=== PATIENT | female | born 1990 | race Caucasian/White ===

== ENCOUNTER 2017-08-20 13:53 | Outpatient (CLI) | payer MEDICAID ==
[2017-08-20 15:33] LABS: ADD MAN DIFF? NO
[2017-08-20 15:36] LABS: WHITE BLOOD COUNT 5.5 10^3/ul (4.8-10.8)
[2017-08-20 15:36] LABS: BASOPHILS % 0.2 % (0.0-2.0); EOSINOPHILS # 0.1 10^3/ul (0.0-0.5); EOSINOPHILS % 1.1 % (0.0-7.0); HEMATOCRIT 34.5 % (37.0-47.0); HEMOGLOBIN 11.7 g/dl (12.0-16.0); LYMPHOCYTES # 1.4 10^3/ul (0.8-2.9); LYMPHOCYTES % 25.6 % (15.0-51.0); MEAN CORPUSCULAR HEMOGLOBIN 27.1 pg (29.0-33.0); MEAN CORPUSCULAR HGB CONC 33.9 g/dl (32.0-37.0); MEAN CORPUSCULAR VOLUME 79.9 fl (82.0-101.0); MEAN PLATELET VOLUME 11.7 fl (7.4-10.4); MONOCYTE # 0.5 10^3/ul (0.3-0.9); MONOCYTES % 8.5 % (0.0-11.0); NEUTROPHIL # 3.5 10^3/ul (1.6-7.5); NEUTROPHILS % 64.1 % (39.0-77.0); PLATELET COUNT 238 10^3/UL (140-415); RED BLOOD COUNT 4.32 10^6/ul (4.20-5.40); RED CELL DISTRIBUTION WIDTH 14.2 % (11.5-14.5)
[2017-08-20 16:03] LABS: ALANINE AMINOTRANSFERASE 26 IU/L (13-69); ALBUMIN 3.3 g/dl (3.3-4.9); ALBUMIN/GLOBULIN RATIO 0.97; ALKALINE PHOSPHATASE 237 IU/L (42-121); ANION GAP 11 (8-16); ASPARTATE AMINO TRANSFERASE 25 IU/L (15-46); BILIRUBIN,INDIRECT 0.2 mg/dl (0-1.1); BILIRUBIN,TOTAL 0.2 mg/dl (0.2-1.3); BLOOD UREA NITROGEN 4 mg/dl (7-20); CARBON DIOXIDE 22 mmol/L (21-31); CHLORIDE 109 mmol/L (97-110); CREATININE 0.38 mg/dl (0.44-1.00); GLUCOSE 93 mg/dl (70-220); POTASSIUM 3.9 mmol/L (3.5-5.1); SODIUM 138 mmol/L (135-144); TOTAL PROTEIN 6.7 g/dl (6.1-8.1)
[2017-08-24 12:31] LABS: CHENODEOXYCHOLIC ACID 1.5 umol/L (< OR = 3.1); CHOLIC ACID 1.9 umol/L (< OR = 1.8); DEOXYCHOLIC ACID <0.5 umol/L (< OR = 2.4); TOTAL BILE ACIDS 3.4 umol/L (< OR = 6.8)
== END 2017-08-20 18:25 | disposition home or self-care (01) ==
LOC: OBT 13:53 → L-D 13:54 → OBT 18:25
DX: O26.893 Other specified pregnancy related conditions, third trimester (principal); L29.9 Pruritus, unspecified; O62.9 Abnormality of forces of labor, unspecified; Z3A.37 37 weeks gestation of pregnancy
CPT/HCPCS: 80053; 83789; 85025

== ENCOUNTER 2017-08-20 19:56 | Outpatient (CLI) | payer MEDICAID ==
[2017-08-24] MEDS ORDERED: FENTAnyl 2MCG/ML-ROPIV 0.2% 100 ML (09:45)
== END 2017-08-20 20:50 | disposition home or self-care (01) ==
LOC: OBT 19:56 → L-D 19:57 → OBT 20:50
DX: O26.893 Other specified pregnancy related conditions, third trimester (principal); Z3A.38 38 weeks gestation of pregnancy; L29.9 Pruritus, unspecified
CPT/HCPCS: 76818

== ENCOUNTER 2017-08-23 12:44 | Inpatient (IN) | payer MEDICAID ==
[2017-08-23 14:41] LABS: ADD MAN DIFF? NO
[2017-08-23 14:44] LABS: WHITE BLOOD COUNT 6.1 10^3/ul (4.8-10.8)
[2017-08-23 14:44] LABS: BASOPHILS % 0.2 % (0.0-2.0); EOSINOPHILS # 0.1 10^3/ul (0.0-0.5); EOSINOPHILS % 0.8 % (0.0-7.0); HEMATOCRIT 34.1 % (37.0-47.0); HEMOGLOBIN 11.6 g/dl (12.0-16.0); LYMPHOCYTES # 1.6 10^3/ul (0.8-2.9); LYMPHOCYTES % 26.5 % (15.0-51.0); MEAN CORPUSCULAR HEMOGLOBIN 27.6 pg (29.0-33.0); MEAN PLATELET VOLUME 11.8 fl (7.4-10.4); MONOCYTE # 0.3 10^3/ul (0.3-0.9); MONOCYTES % 5.6 % (0.0-11.0); NEUTROPHIL # 4.1 10^3/ul (1.6-7.5); NEUTROPHILS % 66.6 % (39.0-77.0); PLATELET COUNT 228 10^3/UL (140-415); RED BLOOD COUNT 4.21 10^6/ul (4.20-5.40); RED CELL DISTRIBUTION WIDTH 14.1 % (11.5-14.5)
[2017-08-23 14:47] LABS: ADD UMIC YES; UR ASCORBIC ACID NEGATIVE (NEGATIVE); UR BILIRUBIN (Dip) NEGATIVE (NEGATIVE); UR BLOOD (Dip) NEGATIVE (NEGATIVE); UR CLARITY CLEAR (CLEAR); UR COLOR YELLOW (YELLOW); UR GLUCOSE (Dip) NEGATIVE (NEGATIVE); UR KETONES (Dip) 1+ mg/dL (NEGATIVE); UR LEUKOCYTE ESTERASE (Dip) 1+ Leu/ul (NEGATIVE); UR MUCUS FEW /HPF (NONE SEEN); UR NITRITE (Dip) NEGATIVE (NEGATIVE); UR RBC 1 /HPF (0-5); UR SPECIFIC GRAVITY (Dip) 1.011 (1.003-1.030); UR SQUAMOUS EPITHELIAL CELL FEW /HPF (FEW); UR TOTAL PROTEIN (Dip) NEGATIVE (NEGATIVE); UR UROBILINOGEN (Dip) NEGATIVE (NEGATIVE); UR WBC 4 /HPF (0-5)
[2017-08-23] MEDS: LACTATED RINGER'S 1,000 ML IV ×3 (14:47→21:43)
[2017-08-23 15:04] LABS: INR 0.93; PROTIME 12.6 Sec (11.9-14.9)
[2017-08-23 15:05] LABS: PARTIAL THROMBOPLASTIN TIME 26.9 Sec (25.0-35.0)
[2017-08-23 15:11] LABS: ALANINE AMINOTRANSFERASE 27 IU/L (13-69); ALBUMIN 3.4 g/dl (3.3-4.9); ALKALINE PHOSPHATASE 252 IU/L (42-121); ANION GAP 12 (8-16); ASPARTATE AMINO TRANSFERASE 34 IU/L (15-46); BILIRUBIN,INDIRECT 0.3 mg/dl (0-1.1); BILIRUBIN,TOTAL 0.3 mg/dl (0.2-1.3); BLOOD UREA NITROGEN 4 mg/dl (7-20); CALCIUM 8.9 mg/dl (8.4-10.2); CARBON DIOXIDE 22 mmol/L (21-31); CHLORIDE 107 mmol/L (97-110); CREATININE 0.41 mg/dl (0.44-1.00); GLUCOSE 70 mg/dl (70-220); POTASSIUM 3.6 mmol/L (3.5-5.1); SODIUM 137 mmol/L (135-144); TOTAL PROTEIN 6.8 g/dl (6.1-8.1); URIC ACID 4.4 mg/dl (3.1-7.9)
[2017-08-23] MEDS ORDERED: LIDOCAINE 1% (MPF) 30 ML INJ INJ (18:30)
[2017-08-23] MEDS ORDERED: OXYTOCIN 30 UNITS/LR 500 ML IV (18:30)
[2017-08-23 19:09] LABS: HEPATITIS B SURFACE ANTIGEN NEGATIVE (NEGATIVE)
[2017-08-23] MEDS: URSODIOL 300 MG CAP PO (21:19)
[2017-08-23 21:45] LABS: RAPID PLASMA REAGIN NONREACTIVE (NR)
[2017-08-23] MEDS: BUTORPHANOL 2 MG INJ IV (21:58)
[2017-08-24] MEDS ORDERED: ONDANSETRON 4 MG INJ (04:06)
[2017-08-24] MEDS: ONDANSETRON 4 MG INJ IV (04:14)
[2017-08-24] MEDS: LACTATED RINGER'S 1,000 ML IV ×2 (05:17→09:50)
[2017-08-24] MEDS: PRENATAL VITAMIN PO (09:00)
[2017-08-24] MEDS: URSODIOL 300 MG CAP PO ×3 (09:48→21:51)
[2017-08-24] MEDS ORDERED: NALOXONE (0.4 MG/ML) INJ IV (10:30)
[2017-08-24] MEDS ORDERED: FENTAnyl 2MCG/ML-ROPIV 0.2% 100 ML BAG EPI (10:30)
[2017-08-24] MEDS: OXYTOCIN 30 UNITS/LR 500 ML IV ×2 (10:33→13:06)
[2017-08-24] MEDS ORDERED: LACTATED RINGER'S 1,000 ML IV* (13:09)
[2017-08-24] MEDS ORDERED: ONDANSETRON 4 MG TAB PO (13:30)
[2017-08-24] MEDS ORDERED: DIPHENHYDRAMINE 50 MG INJ IV (13:30)
[2017-08-24] MEDS ORDERED: MISOPROSTOL 200 MCG TAB PR (13:30)
[2017-08-24] MEDS ORDERED: BENZOCAINE 20% 56 ML SPRAY TOP (13:30)
[2017-08-24] MEDS ORDERED: MAGNESIUM HYDROXIDE 30ML CUP PO (13:30)
[2017-08-24] MEDS ORDERED: NA PHOSPHATE/BIPHOS 133 ML ENEMA PR (13:30)
[2017-08-24] MEDS ORDERED: SENNA/DOCUSATE NA (8.6MG/50MG) TAB PO (13:30)
[2017-08-24] MEDS ORDERED: ONDANSETRON 4 MG INJ IV (13:30)
[2017-08-24] MEDS ORDERED: LANOLIN 7 GM TUBE TOP (13:30)
[2017-08-24] MEDS ORDERED: CARBOPROST 250 MCG INJ IM (13:30)
[2017-08-24] MEDS ORDERED: DIBUCAINE 1% 30 GM OINT TOP (13:30)
[2017-08-24] MEDS ORDERED: DIPHENHYDRAMINE 25 MG CAP PO (13:30)
[2017-08-24] MEDS ORDERED: WITCH HAZEL/GLYCERIN PAD PR (13:30)
[2017-08-24] MEDS: HYDROCODONE/APAP (5/325) TAB PO (15:49)
[2017-08-24] MEDS: IBUPROFEN 600 MG TAB PO (18:15)
[2017-08-24] MEDS: AMOXICILLIN 500 MG CAP PO (21:51)
[2017-08-24] MEDS: SENNA/DOCUSATE NA (8.6MG/50MG) TAB PO (21:51)
[2017-08-25] MEDS: IBUPROFEN 600 MG TAB PO ×5 (00:06→23:49)
[2017-08-25] MEDS: HYDROCODONE/APAP (5/325) TAB PO ×2 (02:44→19:55)
[2017-08-25] MEDS: AMOXICILLIN 500 MG CAP PO ×3 (06:24→22:12)
[2017-08-25] MEDS ORDERED: CEFAZOLIN 1 GM INJ (07:00)
[2017-08-25] MEDS: DEXTROSE 5%-LR 1,000 ML IV (08:54)
[2017-08-25] MEDS: PRENATAL VITAMIN PO (09:00)
[2017-08-25] MEDS: SENNA/DOCUSATE NA (8.6MG/50MG) TAB PO ×2 (09:00→21:01)
[2017-08-25] MEDS: URSODIOL 300 MG CAP PO ×3 (09:00→21:01)
[2017-08-25 09:11] LABS: ADD MAN DIFF? NO
[2017-08-25 09:12] LABS: BASOPHILS % 0.3 % (0.0-2.0); EOSINOPHILS # 0.1 10^3/ul (0.0-0.5); EOSINOPHILS % 1.2 % (0.0-7.0); HEMATOCRIT 35.4 % (37.0-47.0); HEMOGLOBIN 11.4 g/dl (12.0-16.0); LYMPHOCYTES # 2.4 10^3/ul (0.8-2.9); LYMPHOCYTES % 31.1 % (15.0-51.0); MEAN CORPUSCULAR HEMOGLOBIN 26.8 pg (29.0-33.0); MEAN CORPUSCULAR HGB CONC 32.2 g/dl (32.0-37.0); MEAN CORPUSCULAR VOLUME 83.1 fl (82.0-101.0); MEAN PLATELET VOLUME 11.9 fl (7.4-10.4); MONOCYTE # 0.5 10^3/ul (0.3-0.9); MONOCYTES % 6.5 % (0.0-11.0); NEUTROPHIL # 4.7 10^3/ul (1.6-7.5); NEUTROPHILS % 60.5 % (39.0-77.0); PLATELET COUNT 246 10^3/UL (140-415); RED BLOOD COUNT 4.26 10^6/ul (4.20-5.40)
[2017-08-25 09:12] LABS: WHITE BLOOD COUNT 7.8 10^3/ul (4.8-10.8)
[2017-08-25] MEDS ORDERED: BUPIVACAINE 0.75%/DEXT (SPINAL) 2 ML INJ (13:47)
[2017-08-25] MEDS ORDERED: NEOSTIGMINE 3 MG/3 ML SYRINGE (13:51)
[2017-08-25] MEDS ORDERED: FENTAnyl 50 MCG/ML VIAL (13:51)
[2017-08-25] MEDS ORDERED: MIDAZOLAM 1 MG/ML 2 ML INJ (13:51)
[2017-08-25] MEDS ORDERED: ROCURONIUM 50 MG INJ (13:51)
[2017-08-25] MEDS ORDERED: GLYCOPYRROLATE 0.4 MG INJ (13:51)
[2017-08-25] MEDS ORDERED: PROPOFOL 20 ML (13:51)
[2017-08-25] MEDS ORDERED: DEXAMETHASONE 4 MG/ML 1 ML INJ (13:52)
[2017-08-25] MEDS ORDERED: ONDANSETRON 4 MG INJ (13:52)
[2017-08-25] MEDS ORDERED: KETOROLAC 30 MG INJ (15:20)
[2017-08-25] MEDS: KETOROLAC 30 MG INJ IV (15:26)
[2017-08-25] MEDS: HYDROmorphONE (0.2 MG/ML) 10ML SYG IV ×5 (15:26→16:22)
[2017-08-25] MEDS ORDERED: FENTAnyl 50 MCG/ML VIAL IV ×3 (15:30)
[2017-08-25] MEDS ORDERED: ALBUTEROL 0.083% (NEB) 2.5 MG/3 ML AMP HHN (15:30)
[2017-08-25] MEDS ORDERED: HYDROmorphONE (0.2 MG/ML) 10ML SYG IV (15:30)
[2017-08-25] MEDS: OXYTOCIN 30 UNITS/LR 500 ML IV (18:25)
[2017-08-26] MEDS: IBUPROFEN 600 MG TAB PO ×2 (05:45→11:49)
[2017-08-26] MEDS: AMOXICILLIN 500 MG CAP PO (05:45)
[2017-08-26 09:36] LABS: ADD MAN DIFF? NO
[2017-08-26 09:40] LABS: BASOPHILS % 0.2 % (0.0-2.0); EOSINOPHILS # 0.1 10^3/ul (0.0-0.5); EOSINOPHILS % 0.9 % (0.0-7.0); HEMATOCRIT 34.4 % (37.0-47.0); HEMOGLOBIN 11.3 g/dl (12.0-16.0); LYMPHOCYTES # 2.7 10^3/ul (0.8-2.9); LYMPHOCYTES % 29.5 % (15.0-51.0); MEAN CORPUSCULAR HGB CONC 32.8 g/dl (32.0-37.0); MEAN CORPUSCULAR VOLUME 82.1 fl (82.0-101.0); MEAN PLATELET VOLUME 11.6 fl (7.4-10.4); MONOCYTE # 0.4 10^3/ul (0.3-0.9); MONOCYTES % 4.5 % (0.0-11.0); NEUTROPHIL # 5.8 10^3/ul (1.6-7.5); NEUTROPHILS % 64.5 % (39.0-77.0); PLATELET COUNT 274 10^3/UL (140-415); RED BLOOD COUNT 4.19 10^6/ul (4.20-5.40); RED CELL DISTRIBUTION WIDTH 14.5 % (11.5-14.5)
[2017-08-26 09:40] LABS: WHITE BLOOD COUNT 9.1 10^3/ul (4.8-10.8)
[2017-08-26] MEDS: URSODIOL 300 MG CAP PO (09:41)
[2017-08-26] MEDS: SENNA/DOCUSATE NA (8.6MG/50MG) TAB PO (09:41)
[2017-08-26] MEDS: PRENATAL VITAMIN PO (09:42)
[2017-08-26] MEDS: MEASLES,MUMPS,RUBELLA VACCINE INJ SC* (09:43)
[2017-08-26] MEDS: VARICELLA VACCINE LIVE/PF 1,350 UNIT/0.5 ML ML SC* (09:43)
[2017-08-26] MEDS: DIPHTH/TET/ACEL PERTUSS (ADULT) 0.5 ML VIAL IM* (11:50)
== END 2017-08-26 14:10 | disposition home or self-care (01) | DRG 767 ==
LOC: OBT 12:44 → L-D 12:45 → OBT 14:10 → PP1 08-24 13:30 → L-D 14:10 → PP1 15:39 → L-D 17:58
PROC: 0UT70ZZ Resection of Bilateral Fallopian Tubes, Open Approach (ICD-10-PCS; 2017-08-25 14:00)
PROC: 10E0XZZ Delivery of Products of Conception, External Approach (ICD-10-PCS; principal; 2017-08-25 14:06)
PROC: 0HQ9XZZ Repair Perineum Skin, External Approach (ICD-10-PCS; 2017-08-25 14:06)
DX: O69.81X0 Labor and delivery complicated by cord around neck, without compression, not applicable or unspecified (principal); O70.0 First degree perineal laceration during delivery; Z30.2 Encounter for sterilization; Z3A.37 37 weeks gestation of pregnancy; Z37.0 Single live birth
CPT/HCPCS: 62319; 76815; 76818; 80053; 81001; 84560; 85025; 85384; 85610; 85730; 86592; 86850; 86900; 86901; 87086; 87340; 88302; 90715; 96372